=== PATIENT | male | born 1950 | race Caucasian/White ===

== ENCOUNTER 2022-11-17 11:35 | Emergency (ER) | payer MEDICARE, OTHER, BC ==
[2022-11-17] MEDS ORDERED: Bacitracin Oint 1 GM U/D Packet TOP SCH (14:00)
[2022-11-17] MEDS ORDERED: Bacitracin Oint 28.35 GM Tube TOP SCH ×2 (14:00→14:15)
== END 2022-11-17 14:30 | disposition home or self-care (01) ==
LOC: MW.ED 11:35
DX: S80.812A Abrasion, left lower leg, initial encounter (principal); S80.811A Abrasion, right lower leg, initial encounter; S46.002A Unspecified injury of muscle(s) and tendon(s) of the rotator cuff of left shoulder, initial encounter; I10 Essential (primary) hypertension; W17.89XA Other fall from one level to another, initial encounter
CPT/HCPCS: 71046; 71046-26; 73030-26-LT; 73030-LT; 99283; A9270-GY